=== PATIENT | female | born 1990 | race African-American/Black ===

== ENCOUNTER 2022-11-20 16:38 | Emergency (ER) | payer MEDICAID, OTHER ==
[~2022-11-20] VITALS: Ht 175.3 cm; Wt 103.8 kg
[2022-11-20] MEDS ORDERED: IBUP-1455 PO (19:57)
[2022-11-20] MEDS ORDERED: CYCL-837 PO (19:57)
[2022-11-20 20:41] VITALS: BP 128/85; PULSE 73; RESP 18; TEMP 98; O2SAT 100
== END 2022-11-20 20:42 | disposition home or self-care (01) ==
LOC: ER 16:38
DX: S13.4XXA Sprain of ligaments of cervical spine, initial encounter (principal); M54.59 Other low back pain; V89.0XXA Person injured in unspecified motor-vehicle accident, nontraffic, initial encounter; Y93.89 Activity, other specified; Y92.89 Other specified places as the place of occurrence of the external cause; Y99.8 Other external cause status
CPT/HCPCS: 72070; 72100